=== PATIENT | female | born 1975 | race Hispanic/Latino ===

== ENCOUNTER 2022-06-27 20:58 | Emergency (ER) | payer MEDICARE ==
[2022-06-27] MEDS ORDERED: Sodium Chloride 0.9% 1000 ML 1,000 ML IV STA (21:23)
[2022-06-27] MEDS ORDERED: MORPHINE SULFATE 4 MG INJ IV ONE ×2 (21:23→22:57)
[2022-06-27] MEDS ORDERED: Zofran 4 MG/2 ML VIAL IV ONE (21:23)
[2022-06-27] MEDS ORDERED: PROTONIX 40 MG IV IV ONE ×2 (21:23→21:50)
[2022-06-27 21:41] LABS: Absolute Neutrophil Ct (ANC) 6.07 x10^3/uL (1.4-6.9); Basophil (Absolute #) 0.02 x10^3/uL (0-0.4); Eosinophil % 0.9 % (0.00-5.0); Eosinophil (Absolute #) 0.08 x10^3/uL (0-0.5); Hematocrit 41.2 % (35-47); Hemoglobin 12.9 g/dL (12.0-16.0); Lymphocyte (Absolute #) 2.31 x10^3/uL (1.0-4.6); Lymphocytes % 26.2 % (24.0-44.0); Mean Cell Volume 97.6 fL (78-100); Mean Corpuscular Hemoglobin 30.6 pg (26-32); Mean Corpuscular Hgb Concent. 31.3 g/dL (32-36); Mean Platelet Volume 10.7 fL (7.5-11.0); Monocyte (Absolute #) 0.33 x10^3/uL (0.0-1.3); Monocytes % 3.7 % (0.0-12.0); Neutrophil % 68.8 % (36.0-66.0); Platelet Count 311 x10^3/uL (150-450); Red Blood Count 4.22 x10^6/uL (4.1-5.4); Red Cell Distribution Width 12.4 % (11.5-14.0); White Blood Count 8.8 x10^3/uL (4.0-10.5)
[2022-06-27] MEDS ORDERED: Sodium Chloride 0.9% 1000 ML 1,000 ML ONE (21:50)
[2022-06-27] MEDS ORDERED: Zofran 4 MG/2 ML VIAL ONE (21:50)
[2022-06-27] MEDS ORDERED: MORPHINE SULFATE 4 MG INJ ONE ×2 (21:50→23:16)
[2022-06-27 22:25] LABS: ALBUMIN 4.3 g/dL (3.5-5.0); ALKALINE PHOSPHATASE 51 U/L (38-126); ANION GAP 10.4 MEQ/L (5-15); BLOOD UREA NITROGEN 13 mg/dL (7-17); CHLORIDE 103 mmol/L (98-107); Carbon Dioxide 28 mmol/L (22-30); Creatinine 1 0.62 mg/dL (0.52-1.04); EST GLOMERULAR FILTRATION RATE > 60.0 ML/MIN; Glucose 208 mg/dL (74-106); LIPASE 48 U/L (23-300); Potassium 4.3 mmol/L (3.5-5.1); SGOT/AST 30 U/L (14-36); SGPT/ALT 23 U/L (0-35); SODIUM 137 mmol/L (137-145); Total Protein 8.1 g/dL (6.3-8.2)
[2022-06-27 22:34] LABS: Appearance CLEAR (CLEAR); Bilirubin NEGATIVE (NEGATIVE); Dipstick done @ ? MAIN LAB; Glucose NEGATIVE (NEGATIVE); Ketones NEGATIVE (NEGATIVE); Nitrite NEGATIVE (NEGATIVE); Ph 6.5 (5-6); Protein,Urine Dip NEGATIVE (Negative); RBC TRACE-INTACT Ery/ul (0-5); Urobilinogen 0.2 mg/dL (0-1)
[2022-06-27 22:35] LABS: Bacteria RARE /HPF (NEGATIVE); Epithelial Cells RARE /HPF (FEW); Mucus SLIGHT /HPF (NEGATIVE); RBC 0-2 /HPF (0-2); Urine Cultured Indicated? YES
--- NOTE | 2022-06-27 23:03 | ERPHSYRPT ---
- History of Present Illness Time Seen by Provider: 06/27/22 21:22 Historian: patient Exam Limitations: no limitations Patient Subjective Stated Complaint: pt states she is here because she has been having a migraine. the pain started 2 days ago. pt states it is on the left side of head and face, states she now has nausea and her stomach is swelling after she ate dinner tonight. states she has vomited 2 times.states she became confused yesterday Triage Nursing Assessment: pt is alert and oriented, answeres all questions appropriatly. pt is legally blind, states that she has pain in head 06/07. at bedside Physician History: 46 years old female with bilateral blindness for a long time with history of poorly controlled migraine presented in the ER with having worsening headache on the left side for the last couple of days moderate to severe sharp without any focal numbness tingling weakness. Denies any difficulty speech. Headache is similar to previous episodes and does not think this is the worst headache of her life. She has taken her routine medication with no significant relief. Patient was earlier having dinner and after that started to have left-sided abdominal pain with some distention with nausea and 2 episodes of nonprojectile, nonbilious vomiting. She feels bloated. Timing/Duration: hour(s) (2), constant, gradual onset, worse Activities at Onset: other (After reading) Quality: sharpness Abdominal Pain Onset Location: LLQ, epigastric Pain Radiation: no radiation Severity of Pain-Max: moderate Severity of Pain-Current: moderate Modifying Factors: Improves With: nothing Associated Symptoms: nausea, vomiting Allergies/Adverse Reactions: iodine Allergy (Verified 06/27/22 21:25) Latex, Natural Rubber Allergy (Verified 06/27/22 21:24) naproxen Allergy (Verified 06/27/22 21:24) Travel Risk - International Travel Have you traveled outside of the country in past 3 weeks: No - Coronavirus Screening Are you exhibiting any of the following symptoms?: No Close contact with a COVID-19 positive Pt in past 14-21 Days: No - Vaccine Status Have you recieved a Covid-19 vaccination: No - Review of Systems Constitutional: No Symptoms Eyes: No Symptoms Ears, Nose, & Throat: No Symptoms Respiratory: No Symptoms Cardiac: No Symptoms Abdominal/Gastrointestinal: Abdominal Pain, Nausea, Vomiting Genitourinary Symptoms: No Symptoms Musculoskeletal: No Symptoms Neurological: Headache Psychological: No Symptoms Endocrine: No Symptoms Hematologic/Lymphatic: No Symptoms Immunological/Allergic: No Symptoms - Past Medical History Pertinent Past Medical History: Yes Cardiac History: High Cholesterol, Hypertension Respiratory History: Asthma, COPD Other Medical History: legally blind-unknown cause. migraines - Past Surgical History Past Surgical History: Yes Gastrointestinal: Cholecystectomy Other Surgical History: knee, totator cuff, tubal ligation, hernia repair, D&C. kidkey stone - Social History Smoking Status: Current every day smoker Drug Use: none - Female History Hx Last Menstrual Period: 06/23/22 Hx Now: (unkn) - Nursing Vital Signs Nursing Vital Signs: Initial Vital Signs Respiratory Rate 18 06/27/22 21:00 Blood Pressure 150/85 06/27/22 21:00 O2 Sat by Pulse Oximetry 96 06/27/22 21:00 Pain Scale Pain Intensity 8 - Physical Exam General Appearance: no apparent distress, alert Eye Exam: No scleral icterus Ears, Nose, Throat Exam: normal ENT inspection, TMs normal, pharynx normal Neck Exam: normal inspection, non-tender, supple, full range of motion Respiratory Exam: normal breath sounds, lungs clear Cardiovascular Exam: regular rate/rhythm, normal heart sounds Gastrointestinal/Abdomen Exam: soft, normal bowel sounds, tenderness (Left upper quadrant/flank) Back Exam: normal inspection, normal range of motion Extremity Exam: normal inspection, normal range of motion Neurologic Exam: alert, oriented x 3, cooperative, nml cerebellar function, sensation nml, No shoe patternmaker II-XII nml as tested, No normal mood/affect (Depressed) Skin Exam: normal color SpO2 Interpretation: normal SpO2: 95 O2 Delivery: Room Air Ordered Tests: Active Orders 24 hr Category Date Time Status IV Insertion STAT Care 06/27/22 21:23 Active NPO (ED) STAT Care 06/27/22 21:23 Active ABDOMEN AND PELVIS W/0 CONTRAS [CT] Stat Exams 06/27/22 21:23 Taken CBC W DIFF Stat Lab 06/27/22 21:38 Completed CMP Stat Lab 06/27/22 21:38 Completed CULTURE,URINE Stat Lab 06/27/22 22:28 Received HCG,QUALITATIVE URINE Stat Lab 06/27/22 22:28 Completed LIPASE Stat Lab 06/27/22 21:38 Completed TROPONIN Q4H Lab 06/27/22 21:44 Completed TROPONIN Q4H Lab 06/28/22 01:30 Ordered TROPONIN Q4H Lab 06/28/22 05:30 Ordered UA W/RFX CULTURE Stat Lab 06/27/22 22:28 Completed Medication Summary Discontinued Medications Generic Name Dose Route Start Last Admin Trade Name Gómez PRN Reason Stop Dose Admin Diphenhydramine HCl 25 mg 06/27/22 23:08 06/27/22 23:18 Diphenhydramine Hcl 50 Mg/Ml Vial IV 06/27/22 23:09 25 mg STAT ONE Administration Diphenhydramine HCl Confirm 06/27/22 23:16 Diphenhydramine Hcl 50 Mg/Ml Vial Administered 06/27/22 23:17 Dose 50 mg .ROUTE .STK-MED ONE Sodium Chloride 1,000 mls @ 999 mls/hr 06/27/22 21:23 06/27/22 21:52 Sodium Chloride 0.9% 1000 Ml IV 06/27/22 22:23 999 mls/hr .Q1H1M STA Administration Sodium Chloride Confirm 06/27/22 21:50 Sodium Chloride 0.9% 1000 Ml Administered 06/27/22 21:51 Dose 1,000 mls @ ud .ROUTE .STK-MED ONE Metoclopramide HCl 10 mg 06/27/22 23:08 06/27/22 23:18 Metoclopramide Hcl 10 Mg/2 Ml Vial IV 06/27/22 23:09 10 mg STAT ONE Administration Metoclopramide HCl Confirm 06/27/22 23:17 Metoclopramide Hcl 10 Mg/2 Ml Vial Administered 06/27/22 23:18 Dose 10 mg .ROUTE .STK-MED ONE Morphine Sulfate 4 mg 06/27/22 21:23 06/27/22 21:53 Morphine Sulfate 4 Mg/Ml Injection IV 06/27/22 21:24 4 mg STAT ONE Administration Morphine Sulfate Confirm 06/27/22 21:50 Morphine Sulfate 4 Mg/Ml Injection Administered 06/27/22 21:51 Dose 4 mg .ROUTE .STK-MED ONE Morphine Sulfate 4 mg 06/27/22 22:57 06/27/22 23:18 Morphine Sulfate 4 Mg/Ml Injection IV 06/27/22 22:58 4 mg STAT ONE Administration Morphine Sulfate Confirm 06/27/22 23:16 Morphine Sulfate 4 Mg/Ml Injection Administered 06/27/22 23:17 Dose 4 mg .ROUTE .STK-MED ONE Ondansetron HCl 4 mg 06/27/22 21:23 06/27/22 21:52 Ondansetron Hcl 4 Mg/2 Ml Vial IV 06/27/22 21:24 4 mg STAT ONE Administration Ondansetron HCl Confirm 06/27/22 21:50 Ondansetron Hcl 4 Mg/2 Ml Vial Administered 06/27/22 21:51 Dose 4 mg .ROUTE .STK-MED ONE Pantoprazole Sodium 40 mg 06/27/22 21:23 06/27/22 21:52 Pantoprazole 40 Mg Vial IV 06/27/22 21:24 40 mg STAT ONE Administration Pantoprazole Sodium Confirm 06/27/22 21:50 Pantoprazole 40 Mg Vial Administered 06/27/22 21:51 Dose 40 mg IV .STK-MED ONE Lab/Rad Data: Laboratory Result Diagrams 06/27/22 21:38 06/27/22 21:38 Laboratory Results 06/27/22 06/27/22 06/27/22 Range/Units 22:28 22:28 21:44 WBC (4.0-10.5) x10^3/uL RBC (4.1-5.4) x10^6/uL Hgb (12.0-16.0) g/dL Hct (35-47) % MCV (78-100) fL MCH (26-32) pg MCHC (32-36) g/dL RDW (11.5-14.0) % Plt Count (150-450) x10^3/uL MPV (7.5-11.0) fL Gran % (36.0-66.0) % Immature Gran % (Auto) (0.00-0.4) % Nucleat RBC Rel Count (0.00-0.1) % Eos # (Auto) (0-0.5) x10^3/uL Immature Gran # (Auto) (0.00-0.03) x10^3u/L Absolute Lymphs (auto) (1.0-4.6) x10^3/uL Absolute Monos (auto) (0.0-1.3) x10^3/uL Absolute Nucleated RBC (0.00-0.01) x10^3u/L Lymphocytes % (24.0-44.0) % Monocytes % (0.0-12.0) % Eosinophils % (0.00-5.0) % Basophils % (0.0-0.4) % Absolute Granulocytes (1.4-6.9) x10^3/uL Basophils # (0-0.4) x10^3/uL Sodium (137-145) mmol/L Potassium (3.5-5.1) mmol/L Chloride (98-107) mmol/L Carbon Dioxide (22-30) mmol/L Anion Gap (5-15) MEQ/L BUN (7-17) mg/dL Creatinine (0.52-1.04) mg/dL Estimated GFR ML/MIN Glucose (74-106) mg/dL Calcium (8.4-10.2) mg/dL Total Bilirubin (0.2-1.3) mg/dL AST (14-36) U/L ALT (0-35) U/L Alkaline Phosphatase (38-126) U/L Troponin I < 0.012 (0.000-0.034) ng/mL Serum Total Protein (6.3-8.2) g/dL Albumin (3.5-5.0) g/dL Lipase (23-300) U/L Urinalys Dipstick Clnc MAIN LAB Urine Color YELLOW (YELLOW) Urine Appearance CLEAR (CLEAR) Urine pH 6.5 (5-6) Ur Specific [place] 1.010 (1.005-1.025) POC Urine Protein Conf NEGATIVE (Negative) Urine Ketones NEGATIVE (NEGATIVE) Urine Nitrite NEGATIVE (NEGATIVE) Urine Bilirubin NEGATIVE (NEGATIVE) Urine Urobilinogen 0.2 (0-1) mg/dL Urine Leukocytes TRACE A (NEGATIVE) Urine WBC (Auto) 3-5 A (0-5) /HPF Urine RBC (Auto) 0-2 (0-2) /HPF U Epithel Cells (Auto) RARE (FEW) /HPF Urine Bacteria (Auto) RARE (NEGATIVE) /HPF Urine RBC TRACE-INTACT A (0-5) Mark/ul Urine Mucus (Auto) SLIGHT A (NEGATIVE) /HPF Ur Culture Indicated? YES Urine Glucose NEGATIVE (NEGATIVE) mg/dL Urine HCG, Qual NEGATIVE (Negative) 06/27/22 06/27/22 Range/Units 21:38 21:38 WBC 8.8 (4.0-10.5) x10^3/uL RBC 4.22 (4.1-5.4) x10^6/uL Hgb 12.9 (12.0-16.0) g/dL Hct 41.2 (35-47) % MCV 97.6 (78-100) fL MCH 30.6 (26-32) pg MCHC 31.3 L (32-36) g/dL RDW 12.4 (11.5-14.0) % Plt Count 311 (150-450) x10^3/uL MPV 10.7 (7.5-11.0) fL Gran % 68.8 H (36.0-66.0) % Immature Gran % (Auto) 0.2 (0.00-0.4) % Nucleat RBC Rel Count 0.0 (0.00-0.1) % Eos # (Auto) 0.08 (0-0.5) x10^3/uL Immature Gran # (Auto) 0.02 (0.00-0.03) x10^3u/L Absolute Lymphs (auto) 2.31 (1.0-4.6) x10^3/uL Absolute Monos (auto) 0.33 (0.0-1.3) x10^3/uL Absolute Nucleated RBC 0.00 (0.00-0.01) x10^3u/L Lymphocytes % 26.2 (24.0-44.0) % Monocytes % 3.7 (0.0-12.0) % Eosinophils % 0.9 (0.00-5.0) % Basophils % 0.2 (0.0-0.4) % Absolute Granulocytes 6.07 (1.4-6.9) x10^3/uL Basophils # 0.02 (0-0.4) x10^3/uL Sodium 137 (137-145) mmol/L Potassium 4.3 (3.5-5.1) mmol/L Chloride 103 (98-107) mmol/L Carbon Dioxide 28 (22-30) mmol/L Anion Gap 10.4 (5-15) MEQ/L BUN 13 (7-17) mg/dL Creatinine 0.62 (0.52-1.04) mg/dL Estimated GFR > 60.0 ML/MIN Glucose 208 H (74-106) mg/dL Calcium 9.0 (8.4-10.2) mg/dL Total Bilirubin 0.60 (0.2-1.3) mg/dL AST 30 (14-36) U/L ALT 23 (0-35) U/L Alkaline Phosphatase 51 (38-126) U/L Troponin I (0.000-0.034) ng/mL Serum Total Protein 8.1 (6.3-8.2) g/dL Albumin 4.3 (3.5-5.0) g/dL Lipase 48 (23-300) U/L Urinalys Dipstick Clnc Urine Color (YELLOW) Urine Appearance (CLEAR) Urine pH (5-6) Ur Specific [place] (1.005-1.025) POC Urine Protein Conf (Negative) Urine Ketones (NEGATIVE) Urine Nitrite (NEGATIVE) Urine Bilirubin (NEGATIVE) Urine Urobilinogen (0-1) mg/dL Urine Leukocytes (NEGATIVE) Urine WBC (Auto) (0-5) /HPF Urine RBC (Auto) (0-2) /HPF U Epithel Cells (Auto) (FEW) /HPF Urine Bacteria (Auto) (NEGATIVE) /HPF Urine RBC (0-5) Mark/ul Urine Mucus (Auto) (NEGATIVE) /HPF Ur Culture Indicated? Urine Glucose (NEGATIVE) mg/dL Urine HCG, Qual (Negative) - Progress Progress: improved Progress Note: 06/27/22 23:50 46-year-old is evaluated for migraine and left-sided abdominal pain with nausea vomiting. She is given symptomatic treatment along with Protonix, on reevaluation feeling better. Patient pain started after eating and in the left side around area of stomach, patient does take multiple doses of NSAIDs for her headache and might have some acid reflux/gastritis. I would give her prescription of Protonix to go home. Baseline acute abdomen work-up unremarkable including CT abdomen pelvis without contrast. On reevaluation her headache is also resolved. She has still some discomfort in the abdomen but no peritoneal signs. Recommended taking her Aloxi codon and avoiding NSAIDs. Discussed signs symptoms of worsening needing return to ER which she seems understanding. Stable for discharge. Counseled pt/family regarding: lab results, diagnosis, need for follow-up, rad results - Departure Departure Disposition: Home Clinical Impression: Migraine, Left sided abdominal pain Critical Care Time: No Referrals: VLADIMIR RODRIGUEZ, JEREMY [Primary Care Provider] - Follow up/PCP as directed (1-2 days for re evaluation) Instructions: Severe Abdominal Pain, Adult (DC) Additional Instructions: Take pain medications as needed . follow-up with primary care for reevaluation. Continue with your current migraine medications. Keep appointment with neurology. Return to ER for any worsening. Prescriptions: PANTOPRAZOLE 40 mg Tablet [Protonix 40MG Tablet] 40 mg PO QAM #30 tab
[2022-06-27] MEDS ORDERED: Reglan 10 MG/2 ML IV ONE (23:08)
[2022-06-27] MEDS ORDERED: BENADRYL 50 MG/ML IV ONE (23:08)
[2022-06-27] MEDS ORDERED: BENADRYL 50 MG/ML ONE (23:16)
[2022-06-27] MEDS ORDERED: Reglan 10 MG/2 ML ONE (23:17)
[2022-06-27 23:59] VITALS: BP 121/78; PULSE 98; O2SAT 98
--- NOTE | 2022-06-28 08:51 | XRAY ---
Indication: Left abdomen pain, bloating, nausea, and vomiting. Multiple contiguous axial images obtained through the abdomen and pelvis without contrast. Comparison: None Lungs clear. Heart not enlarged. Stomach is distended with food/fluid. Noncontrasted stomach and bowel loops appear nonobstructed with normal appendix. Mild diffuse scattered colonic fecal debris throughout. Bilateral tubal ligation rings and cholecystectomy clips. No free fluid/air. Remaining liver, pancreas, spleen, adrenal glands, kidneys, ureters, bladder, uterus, and aorta are unremarkable for noncontrast exam. Osseous structures intact. Impression: 1. Mild diffuse fecal stasis. 2. Remaining CT abdomen/pelvis without contrast exam is negative. Comment: Preliminary interpretation made by C. No critical discrepancy.
== END 2022-06-27 23:59 | disposition home or self-care (01) ==
LOC: ED 20:58
DX: G43.909 Migraine, unspecified, not intractable, without status migrainosus (principal); R10.32 Left lower quadrant pain; R10.12 Left upper quadrant pain; R11.2 Nausea with vomiting, unspecified; E78.5 Hyperlipidemia, unspecified; I10 Essential (primary) hypertension; J44.9 Chronic obstructive pulmonary disease, unspecified; Z72.0 Tobacco use; Z79.891 Long term (current) use of opiate analgesic; Z28.310 Unvaccinated for COVID-19
CPT/HCPCS: 36000; 36415; 74176; 80053; 81015; 81025; 83690; 84484; 85025; 87086; 96360; 96374; 96375; 96376; 99284; J1200; J2270; J2405